=== PATIENT | female | born 1965 | race Caucasian/White ===

== ENCOUNTER 2020-07-30 15:04 | Emergency (ER) | payer SELFPAY ==
[~2020-07-30] VITALS: Ht 167.6 cm; Wt 90.0 kg
[2020-07-30] MEDS ORDERED: ACETAMINOPHEN 325MG TABLET PO STA (17:09)
[2020-07-30 20:52] LABS: BASOPHILS % 0.2 % (0.0-2.0); HEMATOCRIT. 44.1 % (36.0-48.0); HEMOGLOBIN. 14.3 g/dL (12.0-16.0); LYMPHOCYTES % 20.5 % (20.0-50.0); MEAN CORPUSCULAR VOLUME 80.3 fL (81.0-99.0); MEAN PLATELET VOLUME 8.1 fl (7.4-10.4); MONOCYTES % 6.1 % (2.0-8.0); NEUTROPHILS % 73.2 % (40.0-76.0); PLATELET 285 x1000/uL (130-400); RED CELL DISTRIBUTION WIDTH 13.8 % (11.6-14.6)
[2020-07-30 20:54] LABS: CHLORIDE 101 mEq/L (98-107)
[2020-07-30 21:31] VITALS: BP 114/78
== END 2020-07-30 21:44 | disposition home or self-care (01) ==
LOC: ER 15:04
DX: U07.1 COVID-19 (principal); J18.9 Pneumonia, unspecified organism; E11.9 Type 2 diabetes mellitus without complications; I10 Essential (primary) hypertension
CPT/HCPCS: 36415; 71045; 80053; 84484; 85025; 93005; 99285